=== PATIENT | male | born 1955 | race Caucasian/White ===

== ENCOUNTER 2017-04-13 02:09 | Emergency (ER) | payer MEDICAID ==
[~2017-04-13] VITALS: Ht 160 cm; Wt 72.6 kg
[2017-04-13] MEDS ORDERED: SIMVASTATIN40 MG ORAL (02:18)
--- NOTE | 2017-04-13 02:38 | Emergency Room Report ---
History of Present Illness General Chief Complaint: Upper Respiratory Illness Source: Patient Present Illness HPI 62-year-old male no significant past medical history presenting with cough for one week. Patient states that he has had dry cough which has occurred every night for the last week. Also associated with mild runny nose. No fever no chills. Patient states when he coughs he has some chest pain, however no chest pain otherwise. Does not smoke, no history of cardiac disease. Patient states that daughter is sick at home as well with cough and runny nose Allergies: Coded Allergies: No Known Allergies (Unverified , 04/13/17) Patient History Past Medical History: see triage record Past Surgical History: none Pertinent Family History: none Reviewed Nursing Documentation: PMH: Agreed, PSxH: Agreed Nursing Documentation-PMH Hx Cardiac Problems: Yes - high cholesterol Review of Systems All Other Systems: negative except mentioned in HPI Physical Exam Vital Signs Date Time Temp Pulse Resp B/P (MAP) Pulse Ox O2 Delivery O2 Flow Rate FiO2 04/13/17 02:13 97.5 73 16 129/76 96 Room Air Sp02 EP Interpretation: reviewed, normal General Appearance: normal inspection, well appearing, no apparent distress, alert, GCS 15, non-toxic Head: normocephalic, atraumatic Eyes: bilateral eye normal inspection, bilateral eye PERRL, bilateral eye EOMI ENT: normal ENT inspection, normal pharynx, normal voice, moist mucus membranes Neck: normal inspection, full range of motion, supple Respiratory: normal inspection, lungs clear, normal breath sounds, no respiratory distress, no retraction, no wheezing, speaking full sentences, chest symmetrical Cardiovascular #1: normal inspection, regular rate, rhythm, no edema, normal capillary refill Cardiovascular #2: 2+ radial (R), 2+ radial (L) Gastrointestinal: normal inspection, non tender, soft, non-distended, no guarding Genitourinary: no CVA tenderness Musculoskeletal: normal inspection, back normal, normal range of motion, non- tender Neurologic: normal inspection, alert, oriented x3, responsive, motor strength/ tone normal, sensory intact, normal gait, speech normal Psychiatric: normal inspection, judgement/insight normal, memory normal Skin: normal inspection, normal color, no rash, warm/dry, well hydrated, normal turgor Medical Decision Making Diagnostic Impression: Primary Impression: Atypical pneumonia ER Course 62-year-old male with cough for one week. Differential diagnosis URI, bronchitis, pneumonia Plan Obtained labs, chest x-ray ER course: Patient remains nontoxic, not in resp distress. Disposition: Patient is to be discharged home with a prescription of Z-Philip Strict precautions discussed with patient on when to return to the emergency room including hemoptysis, high fevers, chills, SOB, chest pain which may indicate severe illness. Patient is to follow up with their primary care doctor within 5 days. Patient agrees with plan. Please note that this Emergency Department Report was dictated using [employer] market clerk technology software, occasionally this can lead to erroneous entry secondary to interpretation by the dictation equipment. CXR Ordered: Yes 1 view Indication: Cough EP interpretation: Yes Interpretation: Possible interstitial infiltrate Impression: Atypical pneumonia Electronically signed by Zo Barraza MD Laboratory Tests Test 04/13/17 02:30 White Blood Count 8.4 K/UL (4.8-10.8) Red Blood Count 4.77 M/UL (4.70-6.10) Hemoglobin 14.7 G/DL (14.2-18.0) Hematocrit 43.7 % (42.0-52.0) Mean Corpuscular Volume 92 FL (80-99) Mean Corpuscular Hemoglobin 30.8 PG (27.0-31.0) Mean Corpuscular Hemoglobin Concent 33.7 G/DL (32.0-36.0) Red Cell Distribution Width 11.7 % (11.6-14.8) Platelet Count 229 K/UL (150-450) Mean Platelet Volume 8.5 FL (6.5-10.1) Neutrophils (%) (Auto) 43.0 % (45.0-75.0) L Lymphocytes (%) (Auto) 38.0 % (20.0-45.0) Monocytes (%) (Auto) 8.1 % (1.0-10.0) Eosinophils (%) (Auto) 9.0 % (0.0-3.0) H Basophils (%) (Auto) 1.8 % (0.0-2.0) Sodium Level 139 mEQ/L (135-145) Potassium Level 3.7 mEQ/L (3.4-4.9) Chloride Level 101 mEQ/L (98-107) Carbon Dioxide Level 28 mEQ/L (20-30) Anion Gap 10 (5-15) Blood Urea Nitrogen 22 mg/dL (7-23) Creatinine 1.1 mg/dL (0.7-1.2) Estimate Glomerular Filtration Rate > 60 mL/min (>60) Glucose Level 106 mg/dL (74-106) Calcium Level 8.9 mg/dL (8.6-10.2) Total Bilirubin 0.3 mg/dL (0.0-1.2) Aspartate Amino Transferase (AST) 16 U/L (5-40) Alanine Aminotransferase (ALT) 7 U/L (3-41) Alkaline Phosphatase 52 U/L (40-129) Total Creatine Kinase 154 U/L (38-174) Creatine Kinase MB 2.8 ng/mL (< 6.7) Creatine Kinase MB Relative Index 1.8 Troponin I 0.002 ng/mL (0.000-0.056) Pro-B-Type Natriuretic Peptide 102 pg/mL (0-125) Total Protein 7.1 g/dL (6.6-8.7) Albumin 4.2 g/dL (3.5-5.2) Globulin 2.9 g/dL Albumin/Globulin Ratio 1.4 (1.0-2.7) EKG Diagnostic Results Rate: normal Rhythm: NSR ST Segments: no acute changes ASA given to the pt in ED: No Rhythm Strip Diag. Results EP Interpretation: yes Rate: 64 Rhythm: NSR, no PVC's, no ectopy Last Vital Signs Date Time Temp Pulse Resp B/P (MAP) Pulse Ox O2 Delivery O2 Flow Rate FiO2 04/13/17 02:13 97.5 73 16 129/76 96 Room Air Disposition: HOME, SELF-CARE Condition: Improved Scripts Azithromycin (ZITHROMAX TRI-PHILIP) 500 Mg Tablet 500 MG ORAL DAILY for 5 Days, #1 PACK 0 Refills Prov: Zo Barraza M.D. 04/13/17 Zo Barraza M.D. Apr 13, 2017 02:38
[2017-04-13 02:41] LABS: BASOPHILS % (AUTO) 1.8 % (0.0-2.0); MEAN CORPUSCULAR HEMOGLOBIN 30.8 PG (27.0-31.0); MEAN CORPUSCULAR HGB CONC 33.7 G/DL (32.0-36.0); MEAN CORPUSCULAR VOLUME 92 FL (80-99); MEAN PLATELET VOLUME 8.5 FL (6.5-10.1); MONOCYTES % (AUTO) 8.1 % (1.0-10.0); PLATELET COUNT 229 K/UL (150-450); RED BLOOD COUNT 4.77 M/UL (4.70-6.10); RED CELL DISTRIBUTION WIDTH 11.7 % (11.6-14.8); WHITE BLOOD COUNT 8.4 K/UL (4.8-10.8)
[2017-04-13 02:58] LABS: ALANINE AMINOTRANSFERASE 7 U/L (3-41); ALBUMIN/GLOBULIN RATIO 1.4 (1.0-2.7); ANION GAP 10 (5-15); ASPARTATE AMINO TRANSFERASE 16 U/L (5-40); CALCIUM 8.9 mg/dL (8.6-10.2); CARBON DIOXIDE 28 mEQ/L (20-30); CHLORIDE 101 mEQ/L (98-107); CREATININE 1.1 mg/dL (0.7-1.2); GLOMERULAR FILTRATION RATE > 60 mL/min (>60); HEMOLYSIS 4; POTASSIUM 3.7 mEQ/L (3.4-4.9); SODIUM 139 mEQ/L (135-145); TOTAL PROTEIN 7.1 g/dL (6.6-8.7)
[2017-04-13 03:08] LABS: CKMB 2.8 ng/mL (< 6.7)
[2017-04-13] MEDS ORDERED: ZITHROMAX TRI-500 MG ORAL (03:11)
[2017-04-13 03:35] VITALS: BP_SYST 120; BP_SYST 129; BP_DIAS 71; BP_DIAS 76
--- NOTE | 2017-04-13 09:20 | Diagnostic Imaging Report ---
Indication: Chest pain Technique: XRAY CHEST 1 V Comparison: None Findings: The cardiomediastinal silhouette is within normal limits. There is no focal consolidation, pneumothorax or pleural effusion. Degenerative changes of the spine are noted. Impression: No acute cardiopulmonary disease.
--- NOTE | 2017-04-18 23:10 | Cardiology Report ---
APPROVED REPORT EKG Measurement Heart [id number] Normal sinus rhythm Normal ECG
== END 2017-04-13 03:35 | disposition home or self-care (01) ==
LOC: EMR 02:40
DX: J18.9 Pneumonia, unspecified organism (principal)
CPT/HCPCS: 36415; 71010; 80053; 82550; 82553; 83880; 84484; 85025; 93005; 99283